=== PATIENT | female | born 1990 | race Caucasian/White ===

== ENCOUNTER → 2017-05-02 | Outpatient (CLI) | payer OTHER ==
[~2017-05-02] MED LIST: IBUP200C8 PO; dayquil PO; mylanta PO
[2017-05-02 13:48] LABS: HEMATOCRIT 43.3 % (34.6-47.8); HEMOGLOBIN 14.6 g/dL (11.7-16.4); WHITE BLOOD COUNT 10.8 x10^3/uL (3.4-10)
== END | disposition home or self-care (01) ==
LOC: STAR 12:34
PROVIDERS: ATTEND Obstetrics & Gynecology Reproductive Endocrinology
DX: Z01.818 Encounter for other preprocedural examination (principal); N84.0 Polyp of corpus uteri
CPT/HCPCS: 36415; 81001; 84702; 85025; 87086

== ENCOUNTER 2017-05-10 06:57 | Day surgery (SDC) | payer OTHER ==
[~2017-05-10] VITALS: Ht 154.9 cm; Wt 76.5 kg
[2017-05-10] MEDS ORDERED: BUPIVACAINE/PF 0.25% ONE (07:19)
[2017-05-10] MEDS ORDERED: LACTATED RINGERS 1,000 ML IV SCH (07:21)
[2017-05-10 07:22] VITALS: BP 124/84
[2017-05-10 07:39] LABS: HCG UR LOT HCG7030192
[2017-05-10 07:44] LABS: HCG UR OBC PASS
[2017-05-10] MEDS ORDERED: PROPOFOL 10 MG/ML, 20ML ONE (08:52)
[2017-05-10] MEDS ORDERED: SUCCINYLCHOLINE 20 MG/ML, 10ML ONE (08:52)
[2017-05-10] MEDS ORDERED: FENTANYL PF 100 MCG/2ML ONE ×2 (08:53→09:50)
[2017-05-10] MEDS ORDERED: MIDAZOLAM 1 MG/ML, 2ML ONE (08:53)
[2017-05-10] MEDS ORDERED: ROCURONIUM 10 MG/ML ONE ×4 (09:27→09:29)
[2017-05-10] MEDS ORDERED: LORazepam 2 MG/ML, 1ML IVPush PRN (09:30)
[2017-05-10] MEDS ORDERED: HYDROcodone/APAP 7.5-325MG/15ML UDC PO PRN (09:30)
[2017-05-10] MEDS ORDERED: HYDROmorphone 1 MG/ML, 1ML IV PRN (09:30)
[2017-05-10] MEDS ORDERED: ONDANSETRON 2MG/ML, 2ML IVPush PRN (09:30)
[2017-05-10] MEDS ORDERED: hydrALAzine 20 MG/ML, 1ML IV PRN (09:30)
[2017-05-10] MEDS ORDERED: KETOROLAC 30 MG/1 ML IV PRN (09:30)
[2017-05-10] MEDS ORDERED: ACETAMINOPHEN 325 MG TABLET PO PRN (09:30)
[2017-05-10] MEDS ORDERED: METOCLOPRAMIDE 5 MG/ML, 2ML IV PRN (09:30)
[2017-05-10] MEDS ORDERED: PROMETHAZINE 25 MG/ML, 1ML IV PRN (09:30)
[2017-05-10] MEDS ORDERED: EPHEDRINE 50 MG/ML, 1ML IVPush PRN (09:30)
[2017-05-10] MEDS ORDERED: ALBUTEROL SULFATE 2.5 MG/3 ML NPPB PRN (09:30)
[2017-05-10] MEDS ORDERED: OXYcodone 5 MG/5 ML ORAL.SOL UDC PO PRN (09:30)
[2017-05-10] MEDS ORDERED: LABETALOL 5MG/ML, 20ML IV PRN (09:30)
[2017-05-10] MEDS ORDERED: METOPROLOL 1 MG/ML, 5ML IV PRN (09:30)
[2017-05-10] MEDS ORDERED: MEPERIDINE/PF 25MG/0.5ML IVPush PRN (09:30)
[2017-05-10] MEDS ORDERED: ACETAMINOPHEN 650 MG/20.3 ML UDC ONE (09:50)
[2017-05-10] MEDS ORDERED: OXYcodone 5 MG/5 ML ORAL.SOL UDC ONE (09:51)
[2017-05-10] MEDS: FENTANYL PF 100 MCG/2ML IV PRN ×2 (09:55→10:05)
[2017-05-10] MEDS ORDERED: KETOROLAC 30 MG/1 ML ONE (10:12)
[2017-05-10] MEDS ORDERED: ALBUTEROL/IPRATROPIUM 2.5MG/0.5MG, 3 ML ONE (10:20)
[2017-05-10] MEDS ORDERED: ONDANSETRON 2MG/ML, 2ML ONE (16:19)
[2017-05-10] MEDS ORDERED: DEXAMETHASONE 4 MG/ML, 1ML ONE (16:19)
== END 2017-05-10 14:15 ==
LOC: OUT 06:57
PROVIDERS: ATTEND Obstetrics & Gynecology Reproductive Endocrinology
DX: N84.0 Polyp of corpus uteri (principal); N93.9 Abnormal uterine and vaginal bleeding, unspecified; Z98.890 Other specified postprocedural states
CPT/HCPCS: 58558; 81025; 88305; 94640; J0330; J1100; J1885; J2250; J2405; J2704; J3010; J3490; J7613

== ENCOUNTER 2018-02-06 21:00 | Emergency (ER) | payer OTHER ==
[~2018-02-06] VITALS: Ht 154.9 cm; Wt 75.2 kg
[2018-02-06 22:47] LABS: BASOPHILS # (AUTO) 0.05 x10^3/uL (0-0.1); BASOPHILS % (AUTO) 0 % (0-1); EOSINOPHILS # (AUTO) 0.27 x10^3/uL (0-0.4); EOSINOPHILS % (AUTO) 2 % (1-7); LYMPHOCYTES # (AUTO) 2.79 x10^3/uL (1-3.4); LYMPHOCYTES % (AUTO) 23 % (22-44); MD NO; MEAN CORPUSCULAR HEMOGLOBIN 30.4 pg (27.0-34.8); MEAN CORPUSCULAR HGB CONC 33.8 g/dL (32.4-35.8); MEAN PLATELET VOLUME 7.8 fL (7.4-10.4); MONOCYTES # (AUTO) 0.73 x10^3/uL (0.2-0.8); MONOCYTES % (AUTO) 6 % (2-9); NEUTROPHILS # (AUTO) 8.31 x10^3/uL (1.8-6.8); NEUTROPHILS % (AUTO) 68 % (42-75); PLATELET COUNT 355 x10^3/uL (130-400); RED CELL DISTRIBUTION WIDTH 13.4 % (9.6-15.2)
[2018-02-06 22:56] LABS: ALBUMIN 3.4 g/dL (3.4-5.0); ANION GAP 8 mmol/L (5-15); CALCIUM 8.9 mg/dL (8.5-10.1); CHLORIDE 108 mmol/L (98-107); CREATININE 0.67 mg/dL (0.55-1.02); CULTURE INDICATED? YES; MICROSCOPIC INDICATED
[2018-02-06 23:20] VITALS: BP 100/51
== END 2018-02-07 01:26 | disposition home or self-care (01) ==
LOC: ED 02-07 00:12
DX: O20.0 Threatened abortion (principal); R82.99 Other abnormal findings in urine; Z3A.17 17 weeks gestation of pregnancy
CPT/HCPCS: 36415; 76815; 80048; 81001; 82040; 85025; 86901; 87086; 99285

== ENCOUNTER 2018-05-13 17:21 | Outpatient (CLI) | payer OTHER ==
[~2018-05-13] VITALS: Ht 154.9 cm; Wt 87.3 kg
[2018-05-13 17:35] VITALS: BP 99/57
== END 2018-05-13 18:48 | disposition home or self-care (01) ==
LOC: LDOP 17:21
PROVIDERS: ATTEND Obstetrics & Gynecology
DX: O26.893 Other specified pregnancy related conditions, third trimester (principal); M54.9 Dorsalgia, unspecified; Z3A.30 30 weeks gestation of pregnancy
CPT/HCPCS: 59025; 99201; G0463

== ENCOUNTER 2018-07-19 10:50 | Inpatient (IN) | payer OTHER ==
[~2018-07-19] VITALS: Ht 154.9 cm; Wt 98.0 kg
[2018-07-20] MEDS ORDERED: OXYTOCIN 30U/ 0.9% NaCL 500ML 500 ML IV PRN (21:46)
[2018-07-20] MEDS ORDERED: D5%-LACTATED RINGERS 1,000 ML IV SCH (21:46)
[2018-07-20] MEDS ORDERED: OXYTOCIN 30U/ 0.9% NaCL 500ML 500 ML IV ONE (21:46)
[2018-07-20] MEDS ORDERED: ONDANSETRON 2MG/ML, 2ML IVPush PRN (22:00)
[2018-07-20] MEDS ORDERED: MISOPROSTOL 25 MCG TABLET VG PRN (22:00)
[2018-07-20] MEDS ORDERED: SODIUM CITRATE/CITRIC ACID 30 ML UDC PO PRN (22:00)
[2018-07-20] MEDS ORDERED: TERBUTALINE 1 MG/ML, 1ML IVPush PRN (22:00)
[2018-07-20] MEDS ORDERED: FENTANYL PF 100 MCG/2ML IV PRN (22:00)
[2018-07-20] MEDS ORDERED: METOCLOPRAMIDE 5 MG/ML, 2ML IVPush PRN (22:00)
[2018-07-20] MEDS ORDERED: CALCIUM CARBONATE 500 MG TAB.CHEW PO PRN (22:00)
[2018-07-20] MEDS ORDERED: MISOPROSTOL 25 MCG TABLET ONE (22:13)
[2018-07-20 22:18] LABS: BASOPHILS # (AUTO) 0.02 x10^3/uL (0-0.1); BASOPHILS % (AUTO) 0 % (0-1); EOSINOPHILS # (AUTO) 0.15 x10^3/uL (0-0.4); EOSINOPHILS % (AUTO) 1 % (1-7); LYMPHOCYTES # (AUTO) 2.59 x10^3/uL (1-3.4); LYMPHOCYTES % (AUTO) 16 % (22-44); MD NO; MEAN CORPUSCULAR VOLUME 88.2 fL (80-100); MEAN PLATELET VOLUME 8.3 fL (7.4-10.4); MONOCYTES % (AUTO) 5 % (2-9); NEUTROPHILS # (AUTO) 12.55 x10^3/uL (1.8-6.8); NEUTROPHILS % (AUTO) 78 % (42-75); PLATELET COUNT 408 x10^3/uL (130-400); RED BLOOD COUNT 3.97 x10^6/uL (3.82-5.3); RED CELL DISTRIBUTION WIDTH 13.8 % (9.6-15.2)
[2018-07-20] MEDS: LACTATED RINGERS 1,000 ML IV SCH (22:24)
[2018-07-21] MEDS: LACTATED RINGERS 1,000 ML IV SCH ×4 (06:29→16:01)
[2018-07-21] MEDS ORDERED: FENTANYL/BUPIV./NS/PF 250 ML EPIDCONT SCH ×2 (08:06→15:32)
[2018-07-21] MEDS ORDERED: FENTANYL PF 500 MCG, BUPIVACAINE/PF 0.5%, 30ML 62.5 ML in SODIUM CHLORIDE 0.9% 177.5 ML EPIDCONT SCH (08:30)
[2018-07-21] MEDS ORDERED: FENTANYL PF 100 MCG/2ML ONE ×3 (09:49→14:57)
[2018-07-21] MEDS: FENTANYL PF 100 MCG/2ML IVPush PRN ×2 (09:51→12:08)
[2018-07-21] MEDS ORDERED: BUPIVACAINE 0.25% ONE (14:57)
[2018-07-21] MEDS ORDERED: LACTATED RINGERS 1,000 ML IVBOLUS PRN (16:00)
[2018-07-22] MEDS ORDERED: ACETAMINOPHEN 325 MG TABLET ONE (01:53)
[2018-07-22] MEDS ORDERED: ACETAMINOPHEN 325 MG TABLET PO PRN ×3 (02:00→06:00)
[2018-07-22] MEDS: AMPICILLIN 2 GM in SODIUM CHLORIDE 0.9% 100 ML IV SCH ×4 (02:02→19:43)
[2018-07-22] MEDS ORDERED: SODIUM CITRATE/CITRIC ACID 30 ML UDC ONE (05:40)
[2018-07-22] MEDS ORDERED: METOCLOPRAMIDE 5 MG/ML, 2ML ONE (05:40)
[2018-07-22] MEDS ORDERED: LACTATED RINGERS 1,000 ML IV SCH (05:43)
[2018-07-22] MEDS ORDERED: ONDANSETRON 2MG/ML, 2ML IV PRN (06:00)
[2018-07-22] MEDS ORDERED: MISOPROSTOL 200 MCG TABLET PR PRN (06:00)
[2018-07-22] MEDS ORDERED: MEASLES,MUMPS&RUBELLA VACC/PF 0.5 ML SQ-VACC PRN (06:00)
[2018-07-22] MEDS ORDERED: CALCIUM CARBONATE 500 MG TAB.CHEW PO PRN (06:00)
[2018-07-22] MEDS: LACTATED RINGERS 1,000 ML IV SCH ×3 (06:00→15:43)
[2018-07-22] MEDS ORDERED: morphine SULFATE 10 MG/ML, 1ML IVPush PRN ×2 (06:00)
[2018-07-22] MEDS ORDERED: FENTANYL PF 100 MCG/2ML ONE (06:01)
[2018-07-22] MEDS ORDERED: WATER-INJECTION,STERILE 10 ML IV ONE (06:37)
[2018-07-22] MEDS ORDERED: EPHEDRINE 50 MG/ML, 1ML ONE (06:37)
[2018-07-22] MEDS ORDERED: CEFAZOLIN 1,000 MG ONE (06:37)
[2018-07-22] MEDS ORDERED: OXYTOCIN 10 UNITS/ML, 1ML ONE (06:37)
[2018-07-22] MEDS ORDERED: LIDOCAINE-MPF 2% ,5ML ONE ×2 (06:37→06:40)
[2018-07-22] MEDS ORDERED: PHENYLEPHRINE 10 MG/ML ONE (06:37)
[2018-07-22] MEDS ORDERED: BUPIVACAINE 0.25% ONE (06:38)
[2018-07-22] MEDS ORDERED: morphine SULFATE/PF 0.5 MG/ML, 10ML ONE (06:43)
[2018-07-22] MEDS ORDERED: KETOROLAC 30 MG/1 ML ONE (07:46)
[2018-07-22] MEDS ORDERED: OXYcodone/APAP 5/325MG TABLET ONE (07:47)
[2018-07-22] MEDS ORDERED: OXYTOCIN 30U/ 0.9% NaCL 500ML 500 ML ONE (07:47)
[2018-07-22] MEDS: KETOROLAC 30 MG/1 ML IV SCH ×3 (07:51→19:48)
[2018-07-22] MEDS: OXYcodone/APAP 5/325MG TABLET PO PRN ×4 (07:52→21:25)
[2018-07-22] MEDS: OXYTOCIN 30U/ 0.9% NaCL 500ML 500 ML IV SCH ×2 (08:02→15:43)
[2018-07-22] MEDS ORDERED: morphine SULFATE 10 MG/ML, 1ML ONE (08:19)
[2018-07-22] MEDS ORDERED: MISOPROSTOL 200 MCG TABLET ONE (08:44)
[2018-07-22] MEDS: PRENATAL VIT/IRON/FA 1 EACH TABLET PO SCH (09:00)
[2018-07-22 10:10] VITALS: BP 103/77
[2018-07-22 11:29] VITALS: BP 111/75
[2018-07-22 15:33] LABS: MEAN CORPUSCULAR HEMOGLOBIN 29.6 pg (27.0-34.8); MEAN CORPUSCULAR HGB CONC 33.2 g/dL (32.4-35.8); MEAN CORPUSCULAR VOLUME 89.2 fL (80-100); MEAN PLATELET VOLUME 8.3 fL (7.4-10.4); PLATELET COUNT 297 x10^3/uL (130-400); RED BLOOD COUNT 3.73 x10^6/uL (3.82-5.3); RED CELL DISTRIBUTION WIDTH 13.9 % (9.6-15.2)
[2018-07-22 16:00] LABS: BASOPHILS # (AUTO) 0.02 x10^3/uL (0-0.1); BASOPHILS % (AUTO) 0 % (0-1); EOSINOPHILS # (AUTO) 0.08 x10^3/uL (0-0.4); EOSINOPHILS % (AUTO) 0 % (1-7); LYMPHOCYTES # (AUTO) 1.66 x10^3/uL (1-3.4); LYMPHOCYTES % (AUTO) 5 % (22-44); MD SCAN; MONOCYTES # (AUTO) 1.04 x10^3/uL (0.2-0.8); MONOCYTES % (AUTO) 3 % (2-9); NEUTROPHILS # (AUTO) 27.94 x10^3/uL (1.8-6.8); NEUTROPHILS % (AUTO) 91 % (42-75)
[2018-07-22 16:22] VITALS: BP 110/78
[2018-07-22] MEDS ORDERED: DIPH,PERTUSS(ACELL),TET VAC/PF NC IM-VACC ONE (19:32)
[2018-07-23 00:02] VITALS: BP 112/75
[2018-07-23] MEDS: OXYTOCIN 30U/ 0.9% NaCL 500ML 500 ML IV SCH ×2 (01:43→11:43)
[2018-07-23] MEDS: LACTATED RINGERS 1,000 ML IV SCH ×2 (01:43→11:43)
[2018-07-23] MEDS: KETOROLAC 30 MG/1 ML IV SCH ×4 (01:44→14:25)
[2018-07-23] MEDS: AMPICILLIN 2 GM in SODIUM CHLORIDE 0.9% 100 ML IV SCH ×2 (01:44→07:37)
[2018-07-23] MEDS: OXYcodone/APAP 5/325MG TABLET PO PRN ×5 (01:44→18:52)
[2018-07-23 04:31] VITALS: BP 108/74
[2018-07-23] MEDS: DOCUSATE 100 MG CAPSULE PO PRN ×2 (07:37→21:40)
[2018-07-23] MEDS: PRENATAL VIT/IRON/FA 1 EACH TABLET PO SCH (07:37)
[2018-07-23 07:43] VITALS: BP 126/85
[2018-07-23] MEDS: IBUPROFEN 600 MG TABLET PO PRN ×2 (14:32→21:40)
[2018-07-23 19:10] VITALS: BP 111/75
[2018-07-24] MEDS: OXYcodone/APAP 5/325MG TABLET PO PRN ×4 (01:09→19:49)
[2018-07-24] MEDS: IBUPROFEN 600 MG TABLET PO PRN ×3 (04:13→18:41)
[2018-07-24 07:45] VITALS: BP 123/85
[2018-07-24] MEDS: PRENATAL VIT/IRON/FA 1 EACH TABLET PO SCH (09:00)
[2018-07-24] MEDS: DOCUSATE 100 MG CAPSULE PO PRN ×2 (10:23→18:41)
[2018-07-24 19:45] VITALS: BP 128/69
[2018-07-24] MEDS: SIMETHICONE 80 MG CHEW TAB PO PRN (19:49)
[2018-07-25] MEDS: OXYcodone/APAP 5/325MG TABLET PO PRN ×4 (00:33→20:47)
[2018-07-25] MEDS: IBUPROFEN 600 MG TABLET PO PRN ×4 (00:33→22:02)
[2018-07-25] MEDS: SIMETHICONE 80 MG CHEW TAB PO PRN ×3 (07:40→22:02)
[2018-07-25] MEDS: PRENATAL VIT/IRON/FA 1 EACH TABLET PO SCH (07:40)
[2018-07-25] MEDS: DOCUSATE 100 MG CAPSULE PO PRN ×2 (07:40→20:47)
[2018-07-25 08:00] VITALS: BP 127/86
[2018-07-25 16:54] VITALS: BP 120/82
[2018-07-25 19:45] VITALS: BP 130/89
[2018-07-26] MEDS: IBUPROFEN 600 MG TABLET PO PRN ×2 (06:16→12:50)
[2018-07-26] MEDS: OXYcodone/APAP 5/325MG TABLET PO PRN ×3 (06:16→17:27)
[2018-07-26] MEDS: SIMETHICONE 80 MG CHEW TAB PO PRN ×2 (06:16→12:50)
[2018-07-26] MEDS: PRENATAL VIT/IRON/FA 1 EACH TABLET PO SCH (08:04)
[2018-07-26] MEDS: DOCUSATE 100 MG CAPSULE PO PRN (08:04)
[2018-07-26 08:09] VITALS: BP 128/87
[2018-07-26] MEDS ORDERED: OXYC-302 PO (15:07)
[2018-07-26] MEDS ORDERED: IBUP-1222 PO (15:07)
== END 2018-07-26 17:17 | disposition home or self-care (01) | DRG 787 ==
LOC: LDIP 07-20 21:44 → 2NW 07-22 09:46
PROVIDERS: ADMIT Obstetrics & Gynecology; ATTEND Obstetrics & Gynecology
PROC: 3E033VJ Introduction of Other Hormone into Peripheral Vein, Percutaneous Approach (ICD-10-PCS; 2018-07-20)
PROC: 10907ZC Drainage of Amniotic Fluid, Therapeutic from Products of Conception, Via Natural or Artificial Opening (ICD-10-PCS; 2018-07-20)
PROC: 10H07YZ Insertion of Other Device into Products of Conception, Via Natural or Artificial Opening (ICD-10-PCS; 2018-07-20)
PROC: 10D00Z1 Extraction of Products of Conception, Low, Open Approach (ICD-10-PCS; principal; 2018-07-22)
DX: O76 Abnormality in fetal heart rate and rhythm complicating labor and delivery (principal); O75.2 Pyrexia during labor, not elsewhere classified; O69.81X0 Labor and delivery complicated by cord around neck, without compression, not applicable or unspecified; Z37.0 Single live birth; Z3A.40 40 weeks gestation of pregnancy; O64.0XX0 Obstructed labor due to incomplete rotation of fetal head, not applicable or unspecified
CPT/HCPCS: 36415; J7121; 82803; 85025; 86850; 86900; 88307; G0378; J0290; J0690; J1885; J2274; J3010; J3490; J2270; J2370; J2590; J2765; J7120